=== PATIENT | male | born 1970 ===

== ENCOUNTER 2019-05-28 11:34 | Day surgery (SDC) | payer OTHER ==
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
[~2019-05-28 11:34] MED LIST: Buffered Lidocaine 1% SYRIN* 1 ML/SYRINGE INTRADERM ONE; Lactated Ringers 1000 ML Bag* 1,000 ML IV SCH
[2019-05-28] MEDS ORDERED: Clindamycin 900 MG/D5W BAG(*) 900 MG/50 ML BAG IVPB ONE (12:29)
[2019-05-28] MEDS ORDERED: fentaNYL* 50 MCG/ML 2 ML VIAL (100 MCG VIAL) ONE (13:48)
[2019-05-28] MEDS ORDERED: Midazolam* 1 MG/ML 2 ML VIAL (2 MG) ONE (13:48)
[2019-05-28] MEDS ORDERED: Lidocaine 1% INJ* 10 MG/ML 30 ML SDV ONE (14:08)
[2019-05-28] MEDS ORDERED: Ondansetron INJ* 2 MG/ML VIAL ONE (14:19)
[2019-05-28] MEDS ORDERED: Dexamethasone IV* 4 MG/ML 1 ML (4 MG) ONE (14:19)
[2019-05-28] MEDS ORDERED: Naloxone* 0.4 MG/ML 1 ML VIAL IV PRN (14:44)
[2019-05-28] MEDS ORDERED: Ketorolac INJ* 30 MG/ML 1 ML VIAL ONE (14:46)
[2019-05-28] MEDS ORDERED: Lidocaine 2% PF * 5 ML VIAL ONE (14:46)
[2019-05-28] MEDS ORDERED: Propofol* 10 MG/ML 20 ML BTL ONE (14:46)
[2019-05-28 16:31] VITALS: BP 148/104
--- NOTE | 2019-05-29 02:49 | OP ---
DATE OF OPERATION: 05/28/19 [facility] DATE OF : 74 SURGEON: Dr. Tyra Almonte. PROTOTYPE ENGINEER: VANESA Estrada ANESTHESIA: General. PRE-OP DIAGNOSIS: Dupuytren's contracture of the left long and small fingers. POST-OP DIAGNOSIS: Dupuytren's contracture of the left long and small fingers. OPERATIVE PROCEDURE: Dupuytren's removal, left long and small fingers. ESTIMATED BLOOD LOSS: Zero. TOURNIQUET TIME: About an hour. INDICATION FOR PROCEDURE: Cameron is a 48-year-old male who has a severe contracture of the PIP joint of his middle and small fingers; he presents for Dupuytren's excision. DESCRIPTION OF PROCEDURE: The patient was brought to the operating room, was given a general anesthetic and placed in the supine position on the operating table with a tourniquet around his left upper extremity. The skin of his left upper extremity was prepped and draped in the usual sterile fashion. The hand and forearm were exsanguinated and the tourniquet elevated to 250 mmHg. Dc incisions were made, centered over the 2 contracture cords and the skin flaps were carefully elevated off of the cords. The digital neurovascular bundles were then carefully dissected out in each finger and then the Vesta's tissue was removed in its entirety sent for pathology. There was a persistent, about a 20 degree PIP contracture in both fingers. The wounds were copiously irrigated with saline. The skin edges were reapproximated with 4-0 nylon suture. The wounds were dressed with Xeroform, 4x4, Webril, and a volar splint holding the fingers in extension. The patient tolerated the procedure well and was brought to the recovery room in good condition after awakening from general anesthesia. [id number]/[facility] #: [id number] JUNIOR
== END 2019-05-28 16:50 ==
LOC: OREAST 11:34
PROVIDERS: ATTEND Orthopaedic Surgery
DX: M72.0 Palmar fascial fibromatosis [Dupuytren] (principal); Z88.0 Allergy status to penicillin; Z88.1 Allergy status to other antibiotic agents; J45.909 Unspecified asthma, uncomplicated; F17.210 Nicotine dependence, cigarettes, uncomplicated; K21.9 Gastro-esophageal reflux disease without esophagitis
CPT/HCPCS: 88304; J1100; J1885; J2250; J2405; J2704; J3010